=== PATIENT | female | born 1995 | race Caucasian/White ===

== ENCOUNTER 2025-05-17 22:37 | Emergency (ER) | payer SELFPAY ==
[~2025-05-17] VITALS: Ht 149.9 cm; Wt 97.0 kg
[2025-05-17 22:41] VITALS: O2SAT 98
[2025-05-17] MEDS: ACETAMINOPHEN 325MG TABLET PO ONE (23:20)
[2025-05-17] MEDS: SODIUM CHLORIDE 0.9% 1,000 ML IV ONE (23:21)
[2025-05-17 23:28] LABS: BASOPHILS % 0.7 % (0.0-2.0); EOSINOPHILS % 3.3 % (0.0-5.0); HEMATOCRIT. 37.6 % (36.0-48.0); HEMOGLOBIN. 12.4 g/dL (12.0-16.0); LYMPHOCYTES % 31.8 % (20.0-50.0); MEAN PLATELET VOLUME 7.5 fl (7.4-10.4); MONOCYTES % 4.7 % (2.0-8.0); NEUTROPHILS % 59.5 % (40.0-76.0); PLATELET 314 x1000/uL (130-400); RED BLOOD CELL COUNT 4.53 mill/uL (4.2-5.4); RED CELL DISTRIBUTION WIDTH 13.9 % (11.6-14.6)
[2025-05-17 23:39] LABS: INR 1.0
[2025-05-17 23:45] LABS: CREATININE 0.8 mg/dL (0.6-1.0); UREA NITROGEN BLOOD 8 mg/dL (9-23)
[2025-05-17 23:46] LABS: ETHANOL BLOOD < 10 mg/dL (<10)
[2025-05-17 23:47] LABS: ASPARTATE AMINOTRANSFERASE 46 IU/L (<34); BILIRUBIN DIRECT 0.1 mg/dL (<=3.0)
[2025-05-17 23:48] LABS: BILIRUBIN TOTAL 0.4 mg/dL (0.1-1.0); PROTEIN TOTAL 7.6 g/dL (6.0-8.3)
[2025-05-17 23:51] LABS: HCG SCREEN NEGATIVE
[2025-05-18 00:28] LABS: *AMPHETAMINES SCREEN URINE NEGATIVE (NEGATIVE); *BARBITURATES SCREEN URINE NEGATIVE (NEGATIVE); *BENZODIAZEPINES SCREEN URINE NEGATIVE (NEGATIVE); *COCAINE SCREEN URINE NEGATIVE (NEGATIVE); CANNABINOID URINE SCREEN NEGATIVE (NEGATIVE); ECSTASY MDMA SCREEN URINE NEGATIVE (NEGATIVE); METHADONE URINE SCREEN NEGATIVE (NEGATIVE); OPIATES URINE SCREEN NEGATIVE (NEGATIVE); PHENCYCLIDINE URINE SCREEN NEGATIVE (NEGATIVE)
[2025-05-18] MEDS ORDERED: IBUP-1455 MT (01:13)
[2025-05-18] MEDS ORDERED: METO-293 MT (01:13)
[2025-05-18] MEDS: DEXAMETHASONE 10 MG/ML VIAL IV ONE (01:23)
[2025-05-18] MEDS: KETOROLAC 15MG/ML VIAL IV ONE (01:23)
[2025-05-18] MEDS: METOCLOPRAMIDE HCL 10MG/2ML VIAL IV ONE (01:23)
[2025-05-18] MEDS: IOHEXOL-350 100 ML BOTTLE ONE (01:57)
[2025-05-18 03:00] VITALS: BP 98/67; PULSE 79; RESP 15; TEMP 37.1; O2SAT 99
== END 2025-05-18 03:00 | disposition home or self-care (01) ==
LOC: ER 22:37
DX: R55 Syncope and collapse (principal); R42 Dizziness and giddiness; R11.0 Nausea; Z79.52 Long term (current) use of systemic steroids; Z98.51 Tubal ligation status; Z79.899 Other long term (current) drug therapy
CPT/HCPCS: 80076; 80048; 80320; 84703; 85025; 85610; 85730; 36415; 71045; 96361; 99285; 80305; 70496; 70498; 70450; 96374; 96375; J7030; Q9967; J1100; J1885; J2765; G0480